=== PATIENT | male | born 1980 | race Hispanic/Latino ===

== ENCOUNTER 2021-10-26 08:20 | Emergency (ER) | payer SELFPAY ==
[~2021-10-26] VITALS: Ht 162.6 cm; Wt 61.7 kg
[2021-10-26 08:42] VITALS: BP 151/78
[2021-10-26] MEDS ORDERED: TETRACAINE HCL 0.5% 4 ML OPHTH SOLN ONE (08:47)
[2021-10-26] MEDS ORDERED: FLUORESCEIN SODIUM 1 STRIP STRIP ONE (08:48)
[2021-10-26] MEDS ORDERED: ERYT1OIN7 OP (09:41)
[2021-10-26] MEDS: FLUORESCEIN SODIUM 1 STRIP STRIP OP SCH ×2 (09:47→09:48)
[2021-10-26] MEDS ORDERED: ERYTHROMYCIN BASE 0.5% OPHTH OINT 1 GM TUBE OU SCH (10:00)
== END 2021-10-26 09:50 | disposition home or self-care (01) ==
LOC: EDH 08:20
DX: H10.9 Unspecified conjunctivitis (principal); F17.200 Nicotine dependence, unspecified, uncomplicated

== ENCOUNTER 2025-04-17 22:42 | Emergency (ER) | payer BC ==
[~2025-04-17] VITALS: Ht 160 cm; Wt 49.9 kg
[~2025-04-17 22:42] MED LIST: ERYT1OIN7 OP
[2025-04-18] LABS: BASOPHILS # (AUTO) 0.04 K/uL (0.00-0.20); BASOPHILS % (AUTO) 0.3 % (0.0-5.0); EOSINOPHILS # (AUTO) 0.01 K/uL (0.00-0.70); EOSINOPHILS % (AUTO) 0.1 % (0.0-8.0); HEMATOCRIT 42.7 % (42-54); IMMATURE GRANULOCYTE ABSOLUTE 0.06 K/uL (0-1); LYMPHOCYTES # (AUTO) 0.7 K/uL (1.0-4.8); LYMPHOCYTES % (AUTO) 4.3 % (21.0-51.0); MEAN CORPUSCULAR HEMOGLOBIN 30.1 pg (27.0-33.0); MONOCYTES # (AUTO) 0.9 K/uL (0.1-1.0); NEUTROPHILS # (AUTO) 13.7 K/uL (1.8-7.7); NEUTROPHILS % (AUTO) 88.9 % (40.0-77.0); PLATELET COUNT (AUTO) 310 K/uL (130-400); RED BLOOD CELL COUNT(AUTO) 4.69 MIL/uL (4.50-6.20); RED CELL DISTRIBUTION WIDTH 13.7 % (11.0-15.5); WHITE BLOOD COUNT (AUTO) 15.4 K/uL (4.8-10.8)
[2025-04-18 00:14] LABS: CARBON DIOXIDE 28 mmol/L (21-32); CHLORIDE 107 mmol/L (101-111); CREATININE 1.2 mg/dL (0.5-1.3); GLOMERULAR FILTR. RATE CALC 76 mL/min (>90); GLUCOSE,RANDOM 104 mg/dL (70-105); POTASSIUM 3.9 mmol/L (3.5-5.1); SODIUM SERUM 145 mmol/L (136-145); UREA NITROGEN, BLOOD 16 mg/dL (7-18)
--- NOTE | 2025-04-18 00:20 | NUR ---
patient admits to being at a [employer] earlier in the day and having been given an unknown substance which he snorted. After that began feeling anxious and paranoid, so he went home
[2025-04-18 00:36] LABS: ACETAMINOPHEN < 1 mcg/mL (10-29); ALCOHOL, BLOOD < 3 mg/dL (0-10); SALICYLATE < 2.8 mg/dL (2.8-20.0)
[2025-04-18 00:56] LABS: WBC MORPHOLOGY CONSISTENT W/DIFF
--- NOTE | 2025-04-18 01:21 | ERN ---
ED Note History of Present Illness Stated Complaint: BELIEVES HE IS BEING FOLLOWED Chief Complaint: Psych Evaluation Time Seen by MD: 23:38 Time Seen by Midlevel: 23:38 Dictation: The patient is a 44-year-old male with no significant past medical history who presents to the emergency department via EMS after he felt like somebody was following him. Patient reports that he was at a [employer] party and noted in on known drug which caused him to have paranoia. Patient denies any suicidal or homicidal ideations. Denies any hallucinations. Patient reports he is back to baseline. Denies any complaints. Allergies: Coded Allergies: No Known Allergies (Unverified Allergy, Unknown, 10/26/21) Home Meds Active Scripts Erythromycin Base (Erythromycin) 1 Gm Oint...g., 1 GM OP TID for 5 Days, #1 TUBE 0 Refills Prov:RENEE ALEX MD 10/26/21 Past Medical History Past Medical History: No Pertinent History Surgical History: None Social History: Smokers, Lives with family, Other RN Note Reviewed/Agreed w/PFSH: Yes Review of System Dictation Constitutional: Negative for fever,chills, and weight loss Eyes: Negative for injury, pain,redness, and discharge ENT: Negative for injury,pain or swelling Cardiovascular: Negative for chest pain, palpitations, and edema Respiratory: Negative for shortness of breath, cough, and wheezing, Abdomen/GI: Negative for abdominal pain, nausea, vomiting, diarrhea, and constipation Back: Negative for injury and pain : Negative for injury, bleeding and discharge MS/Extremity: Negative for injury and deformity Skin: Negative for rash, and discoloration Neuro: Negative for headache, weakness, numbness, tingling, and seizure Psych: Negative for suicide ideation, homicidal ideation, and hallucinations positive for paranoia Initial Vital Sign VS Vital Signs Date Time Temp Pulse Resp B/P (MAP) Pulse Ox O2 Delivery O2 Flow Rate FiO2 04/17/25 23:00 98.1 90 16 127/60 100 Room Air 0 04/18/25 00:23 21 Physical Exam Dictation Vital Signs reviewed General Appearance: Alert, oriented x 3, no acute distress, well developed, nourished. Head and Face: non-traumatic. Eyes: PERRL, pink conjunctivas, eyelid no trauma, anterior chamber with arcus senilis. Ears: Pinnas intact and no signs of trauma or erythema ear canals clear and no discharge TM no erythema Nose: No discharge, no bleeding. Oropharynx: Mouth normal, tongue pink. pharynx clear,no erythema, tonsils no exudates, no abscesses noted, mucous membrane moist Neck: Supple, non-tender, no thyromegaly, no masses, no JVD, no bruits Breast:Deferred Chest:No tenderness, no crepitus, no paradoxical movement, no retractions Lungs:Clear, well-ventilated, symmetric, no rales, no wheezing, no rhonchi, no stridor, good breath sounds bilaterally Heart: Regular rate, regular rhythm, no murmur, no gallops Vascular: no peripheral edema, Abdomen: Soft, positive bowel sounds, nondistended, no guarding, nontender, no rebound, no masses no hepatomegaly, no splenomegaly, no Damian's sign, no hernias. Rectal: Deferred Genital: Deferred Neurological: Normal speech, motor function intact, sensory function intact Musculoskeletal: Neck nontender, full range of motion, back nontender, full range of motion, Extremities: nontender, full range of motion Skin: Color pink, dry, no turgor, no rash, no lacerations, no abrasions, no contusions. Lymphatic: Deferred Results (Laboratory/Radiology) Laboratory/Radiology Laboratory Tests Test 04/17/25 23:54 White Blood Count 15.4 K/uL (4.8-10.8) H Red Blood Count 4.69 MIL/uL (4.50-6.20) Hemoglobin 14.1 g/dL (14.0-18.0) Hematocrit 42.7 % (42-54) Mean Corpuscular Volume 91.0 fL (79-99) Mean Corpuscular Hemoglobin 30.1 pg (27.0-33.0) Mean Corpuscular Hemoglobin Concent 33.0 g/dL (32.0-36.0) Red Cell Distribution Width 13.7 % (11.0-15.5) Platelet Count 310 K/uL (130-400) Mean Platelet Volume 9.6 fL (7.5-10.5) Immature Granulocyte % (Auto) 0.4 % (0-1) Neutrophils (%) (Auto) 88.9 % (40.0-77.0) H Lymphocytes (%) (Auto) 4.3 % (21.0-51.0) L Monocytes (%) (Auto) 6.0 % (3.0-13.0) Eosinophils (%) (Auto) 0.1 % (0.0-8.0) Basophils (%) (Auto) 0.3 % (0.0-5.0) Neutrophils # (Auto) 13.7 K/uL (1.8-7.7) H Lymphocytes # (Auto) 0.7 K/uL (1.0-4.8) L Monocytes # (Auto) 0.9 K/uL (0.1-1.0) Eosinophils # (Auto) 0.01 K/uL (0.00-0.70) Basophils # (Auto) 0.04 K/uL (0.00-0.20) Absolute Immature Granulocyte (auto 0.06 K/uL (0-1) Nucleated Red Blood Cells 0.0 % (0.0-0.19) White Cell Morphology Comment CONSISTENT W/DIFF Sodium Level 145 mmol/L (136-145) Potassium Level 3.9 mmol/L (3.5-5.1) Chloride Level 107 mmol/L (101-111) Carbon Dioxide Level 28 mmol/L (21-32) Blood Urea Nitrogen 16 mg/dL (7-18) Creatinine 1.2 mg/dL (0.5-1.3) Glomerular Filtration Rate Calc 76 mL/min (>90) Random Glucose 104 mg/dL (70-105) Total Calcium 9.2 mg/dL (8.5-10.1) Salicylates Level < 2.8 mg/dL (2.8-20.0) L Acetaminophen Level < 1 mcg/mL (10-29) L Serum Alcohol < 3 mg/dL (0-10) Labs Reviewed?: Yes ED Course ED Course Orders Procedure Category Date Status Time Cbc With Differential LAB 04/17/25 Complete 23:24 Basic Metabolic Panel LAB 04/17/25 Complete 23:24 Acetaminophen LAB 04/17/25 Complete 23:24 Salicylate LAB 04/17/25 Complete 23:24 Alcohol, Blood LAB 04/17/25 Complete 23:24 Drug Screen Urine LAB 04/17/25 Logged 23:24 Vital Signs Date Time Temp Pulse Resp B/P (MAP) Pulse Ox O2 Delivery O2 Flow Rate FiO2 04/18/25 02:37 98.1 82 16 158/88 100 Room Air* 0 21 04/18/25 00:23 98.1 85 16 162/92 100 Room Air* 0 21 04/17/25 23:00 98.1 90 16 127/60 100 Room Air 0 Medical Decision Making MDM The patient is a 44-year-old male with no significant past medical history who presents to the emergency department via EMS after he felt like somebody was following him. Patient reports that he was at a [employer] party and noted in on known drug which caused him to have paranoia. Patient denies any suicidal or homicidal ideations. Denies any hallucinations. Patient reports he is back to baseline. Denies any complaints. Differential diagnosis: Drug abuse, electrolyte imbalance, psychosis DX & DISP Disposition: Discharge Departure Impression: Primary Impression: Drug abuse Additional Impression: Encephalopathy acute Condition: Stable Referrals: SELF,REFERRAL (PCP) I performed a substantive portion of the visit. I have reviewed and personally made and approve the management plan that is documented in the notes by myself with JOSE FRANCISCO/resident. I acknowledged full responsibility for the patient's management plan. I took over care in the morning of the patient in the morning after 8 hours of observation in the ER. Patient was woken up, ambulatory, p.o. tolerant, returned to baseline we will LAVELL MURRY April 18, 2025 01:21 JOE MOORE DO April 18, 2025 07:11
[2025-04-18 07:25] VITALS: BP 124/77; PULSE 69; RESP 20; TEMP 98; O2SAT 99
== END 2025-04-18 07:28 | disposition home or self-care (01) ==
LOC: EDH 22:42
DX: F19.10 Other psychoactive substance abuse, uncomplicated (principal); G93.40 Encephalopathy, unspecified; F17.200 Nicotine dependence, unspecified, uncomplicated
CPT/HCPCS: 99283; 80048; 85025; 36415; G0481